=== PATIENT | female | born 1975 | race Caucasian/White ===

== ENCOUNTER 2023-05-30 15:17 | Observation (INO) | payer MEDICAID, SELFPAY ==
[2023-05-30] VITALS (9 sets, daily range): BP systolic 128–177; BP diastolic 46–90; PULSE 86–108; RESP 16–22; TEMP 36.4–37.2; O2SAT 95–100; BMI 27.9
--- NOTE | ~2023-05-30 | CT_ITS ---
EXAMINATION: CT chest abdomen pelvis w con DATE: 05/30/2023 16:55 INDICATION: epigastric abdominal and back pain with Hgb 6.3 . TECHNIQUE: Computed tomography (CT) of the chest, abdomen, and pelvis was performed with 100 mL Omnip aque-350 intravenous contrast. Automated exposure control and iterative reconstruction technique were employed. The dose-length product was 502.56 mGy-cm. COMPARISON: None FINDINGS: CHEST: Thoracic aorta: No significant dilation or calcification. Lung parenchyma and airways: Motion artifact. Lungs and airways are clear. Thoracic inlet, axillae and chest wall: No thyroid or soft tissue mass. No axillary lymphadenopathy. Mediastinum: No mass or lymphadenopathy. Severe wall edema and thickening involving the mid and lower esophagus. Heart and pericardium: Normal heart size. No pericardial effusion. Coronary artery calcifications: . Pleura: No effusion or mass. Thoracic bones: No acute osseous finding in the chest. ABDOMEN/PELVIS: Severe motion artifact in the abdomen and pelvis Liver: Normal. Biliary/Gallbladder: Gallbladder is absent. No bile duct dilation. Pancreas: No mass or duct dilation. Spleen: Normal. Adrenals:No mass. Kidneys: No suspicious mass, obstructing stone, or hydronephrosis. 2 mm left midpole nonobstructing c alcification. GI tract: No small or large bowel dilation. Appendix not confidently visualized Mesentery/Peritoneum: No ascites, mass, or free air. Retroperitoneum: No mass Pelvis: Mild bladder wall thickening in a well distended urinary bladder. The remaining pelvic organs are within normal limits Soft Tissues: Soft tissues and body wall unremarkable. Abdominopelvic bones: No acute osseous finding in the abdomen/pelvis. IMPRESSION: Examination of the inferior chest and the entire abdomen and pelvis significantly limited by severe m otion artifact. Severe esophagitis. Possible cystitis, correlate with urinalysis. Reviewed, dictated and finalized at location K. M TRAP WORKER IMPRESSION: Examination of the inferior chest and the entire abdomen and pelvis significant ly limited by severe motion artifact. Severe esophagitis. Possible cystitis, correlate with urinalysis.
--- NOTE | ~2023-05-30 | CT_ITS ---
EXAMINATION: CT chest abdomen pelvis w con DATE: 05/31/2023 18:21 INDICATION: Abdominal pain. Leukocytosis. TECHNIQUE: Computed tomography (CT) of the chest, abdomen, and pelvis was performed with 100 mL Omnip aque 350 intravenous contrast. Automated exposure control and iterative reconstruction technique were employed. The dose-length product was 302.04 mGy-cm. COMPARISON: CT chest, abdomen, and pelvis 05/30/2023, abdomen ultrasound 05/31/2023. FINDINGS: CHEST CT: There is mild dependent atelectasis bilaterally. There is smooth septal thickening in the lungs, cons istent with mild pulmonary edema. No pleural effusion. The heart size is normal. No pericardial effus ion. There is wall thickening of the distal esophagus. There is severe cervical spondylosis and moder ate thoracic spondylosis. ABDOMEN/PELVIS CT: The liver is normal. There are changes of cholecystectomy. The spleen, pancreas, adrenal glands, and kidneys are normal. There are no dilated loops of bowel. The appendix is normal. The bladder is diste nded. There is physiologic fluid in the pelvis. There are no pathologically enlarged lymph nodes. The re is severe lower lumbar spondylosis. IMPRESSION: 1. Wall thickening of the distal esophagus, likely esophagitis. 2. Mild pulmonary edema. Reviewed, dictated and finalized at location E. URE CAPITALIST
--- NOTE | ~2023-05-30 | US_ITS ---
EXAMINATION: US abdomen limited DATE: 05/31/2023 12:42 INDICATION: Abdominal pain TECHNIQUE: Multiple grayscale and Doppler ultrasound images of the abdomen were obtained. COMPARISON: CT from yesterday FINDINGS: Bowel gas obscures visualization of the pancreas. The visualized portions of the pancreas a re unremarkable. The liver is normal with normal echogenicity and echotexture. No surface nodularity. Normal hepatopetal flow in the main portal vein. Changes of cholecystectomy are noted. The normal co mmon bile duct measures 5 mm. IMPRESSION: 1. Normal sonographic study of the gallbladder. Reviewed, dictated and finalized at location L. CIPAL RESEARCH ECONOMIST
[2023-05-30] MEDS: SODIUM CHLORIDE 0.9% IV 1,000 ML 999 ML IV CONT (15:53)
[2023-05-30] MEDS: METOCLOPRAMIDE HCL INJ 10 MG/2 ML VIAL IV PUSH (15:55)
[2023-05-30] MEDS: KETOROLAC 30 MG/ML VIAL (*BKC) IV PUSH (15:57)
[2023-05-30] MEDS: diphenhydrAMINE HCl INJ 50 MG/ML VIAL IV PUSH ×2 (15:57→20:22)
[2023-05-30] MEDS: FAMOTIDINE 20 MG/2 ML VIAL 40 MG IV PUSH (16:01)
[2023-05-30 16:03] LABS: Basophils Absolute Auto 0.03 K/mm3 (0.00-0.10); Basophils Percent Auto 0.2 % (0.0-1.0); Eosinophils Absolute Auto 0.49 K/mm3 (0.02-0.50); Eosinophils Percent Auto 3.2 % (1.0-6.0); Hematocrit 24.6 % (35.0-49.0); Immature Granulocyte Percent A 0.7 % (0.0-0.0); Lymphocytes Absolute Auto 2.74 K/mm3 (1.10-4.50); Lymphocytes Percent Auto 18.1 % (18.0-42.0); Mean Corpuscular HGB Conc 25.6 g/dL (32.0-36.0); Mean Corpuscular Hemoglobin 20.7 pg (27.0-31.0); Mean Corpuscular Volume 80.7 fL (78.0-102.0); Mean Platelet Volume 10.6 fl (9.2-11.8); Monocytes Absolute Auto 0.96 K/mm3 (0.10-0.90); Monocytes Percent Auto 6.3 % (2.0-11.0); Neutrophils Absolute Auto 10.8 K/mm3 (1.7-7.2); Neutrophils Percent Auto 71.5 % (50.0-70.0); Platelet Count Result 476 K/mm3 (150-420); Red Blood Count 3.05 M/mm3 (4.20-5.40); Red Cell Distribution Width 17.5 % (11.6-14.4); White Blood Count 15.2 K/mm3 (4.8-10.8)
[2023-05-30 16:07] LABS: Hemoglobin 6.3 g/dL (12.0-15.0)
[2023-05-30 16:23] LABS: Lactic Acid Reflex 0.6 mmol/L (0.4-2.0)
--- NOTE | 2023-05-30 16:27 | PC.NURSE ---
RELEASE OF INFORMATION FAXED TO [facility] IN [facility] AT THIS TIME. PT REPORTS SHE WAS LAST IN THE ER AT [facility] SOMETIME SINCE MARCH OF 2023. PT CONTINUES TO THRASH ABOUT ON ÓSCARER, JF. PT REPORTED HER LAST BM WAS TODAY AND NORMAL FOR HER. CALL PLACED TO PT'S PHARMACY, [facility] IN [place], [place] TO OBTAIN MEDICATION LIST. PER PHARMACIST, PT HAS NOT PICKED UP HER MEDICATIONS SINCE SEPTEMBER OF 2022, THE LAST MEDICATION THAT WAS FILLED WAS ON 05/20/23 FOR FAMOTIDINE. PT IS AWAITING CT AT THIS TIME. WILL CONTINUE TO MONITOR.
[2023-05-30 16:31] LABS: Alanine Aminotransferase 18 U/L (14-59); Albumin Level 2.9 g/dL (3.4-5.0); Alkaline Phosphatase 92 U/L (46-116); Anion Gap 13 mmol/L (8-16); Aspartate Amino Transferase 34 U/L (15-37); Bilirubin,Total 0.2 mg/dL (0.00-1.00); Blood Urea Nitrogen 17 mg/dL (7-18); Calcium 9.5 mg/dL (8.5-10.1); Carbon Dioxide 22 mmol/L (21-32); Chloride 102 mmol/L (98-108); Estimated Glomerular Filt Rate > 60; Glucose 107 mg/dL (70-99); Lipase 51 U/L (16-77); Magnesium 1.7 mg/dL (1.8-2.4); Osmolality Calculated 285 mOsm/kg (285-295); Potassium 3.5 mmol/L (3.5-5.1); Sodium 137 mmol/L (136-145); Total Protein 6.9 g/dL (6.4-8.2)
--- NOTE | 2023-05-30 16:32 | ED.GENADULT ---
HPI - General Adult General Chief complaint: Abdominal Pain Stated complaint: ABD Time Seen by Provider: 05/30/23 15:26 History of Present Illness HPI narrative: 47yo woman presents with severe epigastric pain wrapping around the flanks bilaterally, new and sudden onset this morning with vomiting and the intense urge to belch. Pt writhing extensively in an exaggerated display of pain. No fever or chills. Last BM this morning and normal. No black or bloody stool. No black or bloody emesis. Pt does not give a straight answer if asked if she has had this before. She has been to multiple hospitals in [facility] in the past year, and most recently showed a microcytic anemia, hemoglobin 8, MCV 79, back in March, at which time she was diagnosed with esophagitis and prescribed PPI and carofate. Hemoglobin today is 6.3. Related Data Home Medications Medication Instructions Recorded Confirmed Unable to Obtain Home Medications 05/30/23 05/30/23 Allergies Allergy/AdvReac Type Severity Reaction Status Date / Time aspirin AdvReac Gastrointestinal Verified 05/30/23 15:21 Upset hydromorphone [From Dilaudid] AdvReac Migraine Verified 05/30/23 15:21 Review of Systems Review of Systems: All systems reviewed & are unremarkable except as noted in HPI and below Constitutional: Constitutional: Denies chills and Denies fever(s) ENT: Denies dysphagia Cardiovascular: Cardiovascular: Denies chest pain Respiratory: Respiratory: Denies chest congestion, Denies dyspnea and Denies wheezing Gastrointestinal: Gastrointestinal: Reports abdominal pain, Reports bloating, Denies constipation, Denies diarrhea, Reports nausea and Reports vomiting Genitourinary: Genitourinary: Denies abnormal vaginal bleeding and Denies flank pain Exam Const: General: alert Nutritional Appearance: well nourished Orientation/consciousness: patient oriented x3 Other: in obvious moderate discomfort, writhing about on stretcher, but redirectable HENMT: Head: normal to inspection, no contusions and no hematomas Other: there is a mole or scab on the philtrum that appears to have been picked/excoriated Eyes: Conjunctivae: conjunctivae normal EOM: EOMs intact bilaterally Neck: Other: supple, intact ROM Resp: Effort & Inspection: normal respiratory effort and not labored Auscultation: clear to auscultation bilaterally Cardio: Rate: regular rate Rhythm: regular rhythm Heart sounds: no murmurs GI: Inspection: non-distended GI Palp: Yes Soft to palpation, Yes Tenderness to palpation present (GI), Yes Guarding due to palpation present (GI) and No Rigid due to palpation Skin: General skin exam: normal color, no jaundice and no pallor Neuro: General: patient oriented x3 and moves all extremities Extrem: General: no clubbing, cyanosis or edema Course Vital Signs Vital signs: Vital Signs Temperature 36.6 C 05/30/23 15:17 Pulse Rate 108 H 05/30/23 15:17 Respiratory Rate 22 H 05/30/23 15:17 Blood Pressure 177/87 H 05/30/23 15:17 Pulse Oximetry 99 05/30/23 15:17 Oxygen Delivery Room Air 05/30/23 15:17 Temperature 36.7 C 05/30/23 17:49 Pulse Rate 88 05/30/23 17:49 Respiratory Rate 18 05/30/23 17:49 Blood Pressure 143/90 H 05/30/23 17:49 Pulse Oximetry 98 05/30/23 17:49 Oxygen Delivery Room Air 05/30/23 17:49 Medical Decision Making MDM Narrative Medical decision making narrative: epigastric pain, BUQ pain, DDx indigestion, gastritis, peptic ulcer, pancreatitis, esophagitis, consider possible chronic blood loss from ulcer or esophagitis, though iron deficiency seems more likely with the microcytosis. Pt has had cholecystectomy. Vital Signs Vital Signs: Vital Signs Temperature 36.6 C 05/30/23 15:17 Pulse Rate 108 H 05/30/23 15:17 Respiratory Rate 22 H 05/30/23 15:17 Blood Pressure 177/87 H 05/30/23 15:17 Pulse Oximetry 99 05/30/23 15:17 Oxygen Delivery
[2023-05-30 16:35] LABS: SPREG INTERNAL CONTROL Positive; Serum Qual hCG Negative
--- NOTE | 2023-05-30 16:58 | PC.NURSE ---
PT IS AT REST WHEN NO ONE IS IN ROOM, WHEN STAFF ARRIVE TO ROOM, PT BEGINS TO MOAN, BELCH, AND THRASH ABOUT. PT HAS RETURNED FROM CT, WARM BLANKETS AND MOUTH SWABS PROVIDED REQUESTED. PT IS AWAITING RESULTS AT THIS TIME. MEDICAL RECORDS WERE RECEIVED FROM [facility], ERP HAS REVIEWED. WILL CONTINUE TO MONITOR.
[2023-05-30 17:24] LABS: Ferritin 5 ng/mL (8-252); Iron 14 ug/dL (50-170); Percent Iron Saturation 4 % (12-57)
--- NOTE | 2023-05-30 17:50 | PC.NURSE ---
PT IS TO BE ADMITTED TO ROOM 210. PT IS AGREEABLE TO ADMISSION. PT IS CURRENTLY SLEEPING AND SNORING LOUDLY AT THIS TIME. WILL CONTINUE TO MONITOR.
[2023-05-30] MEDS: dexAMETHasone SOD PHOS INJ 10 MG/ML 1 ML VIAL IV PUSH (19:34)
[2023-05-30] MEDS: cefTRIAXone 1 GM/NS 50 ML BAG IVPB (19:44)
--- NOTE | 2023-05-30 20:40 | PC.NURSE ---
Patient brought to floor from ER for admission. Pateint admitttd to smoking meth yesterday. Patient is agitated and crying. Patient is feeling bugs crawling on her, staff unable to see any sign of bugs. IV to right wrist able to be flushed without difficulty. Patient yells out when staff touches her. Patient has 2 scabbed areas near nares. Pateint speaks rapidly and can be difficult to understand at times. Currently living with a cousin and does not have a current doctor or pharmacy. Nurse attempted to notify cousin that patient has been admitted here, message and phone number left. Introduction to room and rountines given. Call light within reach. Patient able to get up and walk without difficulty.
[2023-05-30] MEDS: QUEtiapine FUMARATE 100 MG TABLET PO (20:43)
[2023-05-30] MEDS: SODIUM CHLORIDE 0.9% IV 250 ML 30 ML IV CONT (20:44)
[2023-05-30 22:47] LABS: Add Urine Microscopic? NO; Appearance Urine Clear (Clear); Bilirubin Urine Negative (Negative); Blood Urine Negative (Negative); Color Urine Light Yellow (Yellow); Glucose Urine UA Negative (Negative); Ketones Urine Negative (Negative); Leukocyte Esterase Ur Negative LEU/UL (Negative); Nitrate Urine Negative (Negative); Protein Urine Negative (Negative); Urobilinogen Urine 0.2 mg/dL (0.2-1.0)
[2023-05-31] VITALS: BP 136/69; PULSE 92; RESP 18; TEMP 36.7; O2SAT 97
[2023-05-31] MEDS: DEXTROSE 5%/0.45% SOD CHL 1,000 ML 100 ML IV CONT
[2023-05-31 01:04] LABS: Hematocrit 26.1 % (35.0-49.0); Hemoglobin 7.7 g/dL (12.0-15.0)
[2023-05-31] MEDS: LORazepam INJ (*CRX) 2 MG/ML VIAL IV PUSH (05:25)
[2023-05-31 05:36] LABS: Basophils Absolute Auto 0.01 K/mm3 (0.00-0.10); Basophils Percent Auto 0.1 % (0.0-1.0); Hematocrit 27.4 % (35.0-49.0); Hemoglobin 7.9 g/dL (12.0-15.0); Immature Granulocyte Percent A 0.8 % (0.0-0.0); Lymphocytes Absolute Auto 1.54 K/mm3 (1.10-4.50); Mean Corpuscular HGB Conc 28.8 g/dL (32.0-36.0); Mean Corpuscular Hemoglobin 22.2 pg (27.0-31.0); Mean Platelet Volume 10.2 fl (9.2-11.8); Monocytes Absolute Auto 0.14 K/mm3 (0.10-0.90); Monocytes Percent Auto 1.2 % (2.0-11.0); Neutrophils Absolute Auto 10.1 K/mm3 (1.7-7.2); Neutrophils Percent Auto 84.9 % (50.0-70.0); Nucleated Red Blood Cells Absolute Auto 0.02 K/mm3 (0.00-0.00); Nucleated Red Blood Cells Perc 0.2 % (0-0.0); Platelet Count Result 410 K/mm3 (150-420); Red Blood Count 3.56 M/mm3 (4.20-5.40); Red Cell Distribution Width 16.7 % (11.6-14.4); White Blood Count 11.9 K/mm3 (4.8-10.8)
[2023-05-31 05:48] LABS: Anion Gap 9 mmol/L (8-16); Blood Urea Nitrogen 7 mg/dL (7-18); Calcium 8.6 mg/dL (8.5-10.1); Carbon Dioxide 24 mmol/L (21-32); Chloride 104 mmol/L (98-108); Estimated Glomerular Filt Rate > 60; Glucose 135 mg/dL (70-99); Osmolality Calculated 284 mOsm/kg (285-295); Potassium 3.6 mmol/L (3.5-5.1); Sodium 137 mmol/L (136-145)
[2023-05-31 08:00] VITALS: BP 143/75; PULSE 98; RESP 16; TEMP 36.6; O2SAT 100
--- NOTE | 2023-05-31 08:51 | PM.IMHP ---
H&P: HPI History of Present Illness Date/Time: 05/31/23 08:51 Chief Complaint: Abdominal pain Narrative: This is a 47-year-old female with a significant past medical history of drug abuse, GERD, seizures, bipolar disorder, asthma, COPD, cirrhosis who presented to the hospital with chief complaint of severe epigastric abdominal pain. Patient states that she has been having abdominal pain that has worsened over the last 3-4 days. She reports that it is colicky in nature and radiates from the epigastric area to her flank on the right side. She states that she has not had pain like this before since her gallbladder was removed. She initially denied any sick contacts but did state that her daughter and grandkids possibly had COVID recently. She is not sexually active at this point but has had 1 sexual partner in the past year. She reports that her home life is complicated and sometimes she has a place to live and other times she does not. She states that she last ate yesterday and usually gets 2 meals a day. Workup in the hospital include a CT of the abdomen pelvis with contrast which shown severe esophagitis, possible cystitis, rest of exam was limited due to severe motion artifact. Initial labs revealed a white blood cell count of 15.2, hemoglobin 6.3, hematocrit 24.6, magnesium 1.7, iron 14, TIBC 338, ferritin 5, transferrin is still pending, liver enzymes are normal, kidney function is normal, albumin is 2.9, lipase 51, test was negative, lactate 0.6. UA was performed and was negative for any bacteria. Patient was given antinausea medicine, 1 L normal saline, a dose of Rocephin, 10 mg of dexamethasone x1, and Toradol pain medication. She did receive 2 units of PRBC overnight. She did not list a history of anemia however she is a poor historian. On examination today patient is alert and oriented x3, lying in the bed. She appears very restless, rocking, moaning, and holding her abdomen. Patient denies any fever, chills, nausea, vomiting, diarrhea, chest pain, shortness a breath, headache, vision changes, lightheadedness, dizziness. Patient endorses severe epigastric pain radiating to the right flank, currently she rates her pain at a 5/10. Labs today revealed a white blood cell count of 11.9, hemoglobin 7.9, hematocrit 27.4, serum osmolarity 284, calcium 8.6. Review of Systems Review of Systems: All systems reviewed & are unremarkable except as noted in HPI and below Constitutional: Constitutional: Reports as per HPI and Reports no additional constitutional complaints Eyes: Eyes: Reports as per HPI and Reports no additional eye complaints ENT: Reports system reviewed and no additional complaints, except as documented and Reports as per HPI Cardiovascular: Cardiovascular: Reports as per HPI and Reports no additional cardiovascular complaints Respiratory: Respiratory: Reports as per HPI and Reports no additional respiratory complaints Gastrointestinal: Gastrointestinal: Reports as per HPI and Reports no additional gastrointestinal complaints Genitourinary: Genitourinary: Reports no additional female genitourinary complaints and Reports as per HPI Musculoskeletal: Musculoskeletal: Reports no additional musculoskeletal complaints and Reports as per HPI Integumentary/Breasts: Skin/Breast: Reports system reviewed and no additional complaints, except as docu and Reports as per HPI Neurologic: Reports system reviewed and no additional complaints, except as documented and Reports as per HPI Psychiatric: Psychiatric: Reports no additional psychiatric complaints and Reports as per HPI [facility] Past Medical History Medical History (Updated 05/31/23 @ 11:56 by Esme Parker, RELL) Asthma Bipolar disorder Cirrhosis COPD (chronic obstructive pulmonary disease) Drug abuse and dependence GERD (gastroesophageal reflux disease) Marijuana abuse Methamphetamine abuse Seizures Surgical History Surgical History (Reviewed 05/31/23 @ 1
[2023-05-31 11:25] LABS: Alanine Aminotransferase 22 U/L (14-59); Albumin Level 2.9 g/dL (3.4-5.0); Alkaline Phosphatase 94 U/L (46-116); Aspartate Amino Transferase 28 U/L (15-37); Bilirubin Direct 0.1 mg/dL (0-0.2); Bilirubin,Total 0.3 mg/dL (0.00-1.00); Total Protein 6.9 g/dL (6.4-8.2)
--- NOTE | 2023-05-31 11:37 | PC.NURSE ---
Contacte [facility] to come put in a midline.
[2023-05-31] MEDS: LORazepam (*CRX) 1 MG TABLET (11:39)
[2023-05-31 11:53] LABS: Thyroid Stimulating Hormone 1.12 uIU/mL (0.36-3.74)
[2023-05-31 12:05] LABS: Vitamin B12 295 pg/mL (193-986)
--- NOTE | 2023-05-31 12:13 | PC.NURSE ---
Pt has been hysterical during IV insertion and after. Complains of stomach pain when IV is inserted and pulls arm away. Pt states she is hungry and wants food. RN explained to pt that tests have been ordered that require she be NPO. Pt is writhing on the bed and then sleeping. INSTRUCTOR DANCING is aware.
[2023-05-31 12:14] LABS: CRP < 0.5 mg/dL (0.0-0.9)
[2023-05-31 12:15] LABS: Folic Acid > 20.0 ng/mL (8.6->20)
[2023-05-31 12:39] LABS: Erythrocyte Sedimentation Rate 55 mm/hr (0-15)
[2023-05-31] MEDS: busPIRone HCL 5 MG TABLET 15 MG PO (14:18)
[2023-05-31] MEDS: LORazepam (*CRX) 1 MG TABLET PO (15:46)
[2023-05-31 16:00] VITALS: BP 131/71; PULSE 85; RESP 16; TEMP 36.9; O2SAT 96
--- NOTE | 2023-05-31 17:46 | PC.NURSE ---
[employer] group leader here to insert midline in patient due to patient has poor access. #4 divehi, single lumen Midline inserted into right basilic vein. Patient tolerated well.
[2023-05-31 20:00] VITALS: PULSE 100; RESP 20; O2SAT 97
[2023-05-31] MEDS: traMADol HCL (*CRX) 25 MG TABLET PO (20:25)
[2023-05-31] MEDS: METOCLOPRAMIDE HCL INJ 10 MG/2 ML VIAL IV PUSH (20:26)
[2023-05-31] MEDS: PANTOPRAZOLE 40 MG TABLET PO (20:41)
[2023-05-31] MEDS: QUEtiapine FUMARATE 100 MG TABLET PO (20:41)
--- NOTE | 2023-05-31 21:00 | PC.NURSE ---
Pt asking form food and water and if CT abd is back. Reports reviewed and scans negative. Pt cleared to have food and drink.
--- NOTE | 2023-05-31 21:15 | PC.NURSE ---
Pt given light soft foods to eat and ate 100% of pudding, applesauce and fruit cup. Pt sipping on pepsi, c/o some upper and lower abd cramping and pain c eating. Pt encouraged to not eat so fast and let food digest. Pt given pain meds for her cramping and abd pain as per order
[2023-05-31] MEDS: SALINE LOCK FLUSH 10 ML IV PUSH (21:55)
[2023-05-31 22:48] LABS: Influenza A QL RT-PCR Negative (Negative); Influenza B QL RT-PCR Negative (Negative); RSV RNA, RT-PCR Negative (Negative); SARS-CoV-2 RNA PCR Negative (Negative)
--- NOTE | 2023-05-31 23:00 | PC.NURSE ---
Pt sleeping and is arousable to stimuli then falls back asleep again. Pts VSS, call gilbert at pt side.
[2023-05-31 23:46] VITALS: BP 147/65; PULSE 100; RESP 20; TEMP 36.5; O2SAT 97
--- NOTE | 2023-06-01 05:16 | PC.NURSE ---
Pt awake and restless in bed p blood draw from midline port. Pt wanting more food and drink. Pt given ice chips for pepsi and fruit cups c applesauce. Explained to pt b-fast is at 0800 and will bring increased diet for b-fast. Pt verbalized understanding.
[2023-06-01 05:18] LABS: Basophils Absolute Auto 0.02 K/mm3 (0.00-0.10); Basophils Percent Auto 0.3 % (0.0-1.0); Eosinophils Absolute Auto 0.12 K/mm3 (0.02-0.50); Eosinophils Percent Auto 1.5 % (1.0-6.0); Hematocrit 25.7 % (35.0-49.0); Hemoglobin 7.3 g/dL (12.0-15.0); Immature Granulocyte Absolute 0.05 K/mm3 (0.00-0.00); Immature Granulocyte Percent A 0.6 % (0.0-0.0); Lymphocytes Absolute Auto 2.69 K/mm3 (1.10-4.50); Lymphocytes Percent Auto 34.5 % (18.0-42.0); Mean Corpuscular HGB Conc 28.4 g/dL (32.0-36.0); Mean Corpuscular Hemoglobin 21.8 pg (27.0-31.0); Mean Corpuscular Volume 76.7 fL (78.0-102.0); Monocytes Absolute Auto 0.49 K/mm3 (0.10-0.90); Monocytes Percent Auto 6.3 % (2.0-11.0); Neutrophils Absolute Auto 4.4 K/mm3 (1.7-7.2); Neutrophils Percent Auto 56.8 % (50.0-70.0); Platelet Count Result 409 K/mm3 (150-420); Red Blood Count 3.35 M/mm3 (4.20-5.40); Red Cell Distribution Width 17.2 % (11.6-14.4); White Blood Count 7.8 K/mm3 (4.8-10.8)
[2023-06-01 05:38] LABS: Alanine Aminotransferase 21 U/L (14-59); Albumin Level 2.5 g/dL (3.4-5.0); Alkaline Phosphatase 117 U/L (46-116); Anion Gap 8 mmol/L (8-16); Aspartate Amino Transferase 22 U/L (15-37); Bilirubin,Total 0.2 mg/dL (0.00-1.00); Blood Urea Nitrogen 8 mg/dL (7-18); Calcium 8.1 mg/dL (8.5-10.1); Carbon Dioxide 28 mmol/L (21-32); Chloride 105 mmol/L (98-108); Estimated Glomerular Filt Rate > 60; Glucose 88 mg/dL (70-99); Osmolality Calculated 289 mOsm/kg (285-295); Potassium 3.6 mmol/L (3.5-5.1); Sodium 141 mmol/L (136-145); Total Protein 6.2 g/dL (6.4-8.2)
[2023-06-01] MEDS: SALINE LOCK FLUSH 10 ML IV PUSH (06:32)
[2023-06-01 08:00] VITALS: BP 150/70; PULSE 98; RESP 14; TEMP 36.8; O2SAT 98
[2023-06-01 08:29] LABS: Chlamydia trachomatis NOT DETECTED (NOT DETECTE); Neisseria gonorrhoeae PCR NOT DETECTED (NOT DETECTE)
[2023-06-01] MEDS: busPIRone HCL 5 MG TABLET 15 MG PO (09:11)
[2023-06-01] MEDS: FERROUS SULFATE 325 MG TABLET DR PO (09:11)
[2023-06-01] MEDS: PANTOPRAZOLE 40 MG TABLET PO (09:11)
[2023-06-01] MEDS: SUCRALFATE 1 GM TABLET PO (11:59)
--- NOTE | 2023-06-01 12:45 | PM.DS ---
DS: Admitting Diagnosis Discharge Date 06/01/2023 Admitting Diagnosis acute abdominal pain acute gastritis without hemorrhage iron deficiency anemia GERD cirrhosis bipolar disorder drug abuse and dependence DS: Discharge Diagnosis Discharge Diagnosis (1) Abdominal pain, acute, epigastric: Code(s): R10.13 - Epigastric pain Status: Acute (2) Acute gastritis without hemorrhage: Qualifiers: Gastritis type: other gastritis Qualified Code(s): K29.00 - Acute gastritis without bleeding Code(s): K29.00 - Acute gastritis without bleeding Status: Acute (3) Microcytic anemia: Code(s): D50.9 - Iron deficiency anemia, unspecified Status: Acute (4) GERD (gastroesophageal reflux disease): Code(s): K21.9 - Gastro-esophageal reflux disease without esophagitis Status: Chronic (5) Cirrhosis: Code(s): K74.60 - Unspecified cirrhosis of liver Status: Chronic (6) Bipolar disorder: Code(s): F31.9 - Bipolar disorder, unspecified Status: Chronic (7) Drug abuse and dependence: Code(s): F19.20 - Other psychoactive substance dependence, uncomplicated Status: Chronic DS: Summary Hospital Course Reason for hospitalization: acute abdominal pain acute gastritis without hemorrhage iron deficiency anemia GERD cirrhosis bipolar disorder drug abuse and dependence Hospital Course: 05/31/23: This is a 47-year-old female with a significant? past medical history of drug abuse, GERD, seizures, bipolar disorder, asthma, COPD, cirrhosis who presented to the hospital with chief complaint of severe epigastric abdominal pain.? Patient states that she has been having abdominal pain that has worsened over the last 3-4 days.? She reports that it is colicky in nature and? radiates from the epigastric area to her flank on the right side.? She states that she has not had pain like this before since her gallbladder was removed. ? She initially denied any sick contacts but did state that her daughter and grandkids possibly had COVID recently.? She is not sexually active at this point but has had 1 sexual partner in the past year.? She reports that her home life is complicated and sometimes she has a place to live and other times she does not.? She states that she last ate yesterday and usually gets 2 meals a day. Workup in the hospital include a CT of the abdomen pelvis with contrast which shown severe esophagitis, possible cystitis, rest of exam was limited due to severe motion artifact.? Initial labs revealed a white blood cell count of 15.2, hemoglobin 6.3, hematocrit 24.6, magnesium 1.7, iron 14, TIBC 338, ferritin 5, transferrin is still pending, liver enzymes are normal, kidney function is normal, albumin is 2.9, lipase 51, test was negative, lactate 0.6.? UA was performed and was negative for any bacteria.? Patient was given antinausea medicine, 1 L normal saline, a dose of Rocephin, 10 mg of dexamethasone x1, and? Toradol pain medication.? She did receive 2 units of PRBC overnight. ? She did not list a history of anemia however she is a poor historian. On examination today patient is alert and oriented x3, lying in the bed. She appears very restless, rocking,? moaning, and holding her abdomen. Patient denies any fever, chills, nausea, vomiting, diarrhea, chest pain, shortness a breath, headache, vision changes, lightheadedness, dizziness. Patient endorses severe epigastric pain radiating to the right flank, currently she rates her pain at a 5/10. Labs today revealed a white blood cell count of 11.9, hemoglobin 7.9, hematocrit 27.4, serum osmolarity 284, calcium 8.6. 06/01/23: on examination today patient is alert and oriented x3, lying in the bed. She states she is feeling much better today. She did say that she was diagnosed with a ulcer a while back but has not been followed by any physicians. We did start her on Carafate and Protonix to office messenger helper her abdominal
[2023-06-01] MEDS: CALCIUM CARBONATE (TUMS) 500 MG (200 MG ELEMENTAL) PO (13:09)
--- NOTE | 2023-06-01 16:50 | PC.NURSE ---
Discharge instructions given to patient. Patient acknowledges instructions and signed paper. Patient helped into wheelchair and escorted to personal vehicle. Patients helped into vehicle, accompanied by cousin who was the tram driver. Patients personal belongings with patient at the time of discharge.
--- NOTE | 2023-06-02 13:37 | PC.NURSE ---
Family understood dc instructions, patient having difficulty finding a PCP and a GI consult
[2023-06-02 20:35] LABS: Transferrin 285 mg/dL (188-341)
[2023-06-04 05:56] LABS: Vitamin D 1,25 (OH)2 Total 33 pg/mL (18-72); Vitamin D2 1,25 (OH)2 <8 pg/mL; Vitamin D3 1,25 (OH)2 33 pg/mL
[2023-06-04 19:22] LABS: Hepatitis A Antibody IgM Nonreactive; Hepatitis B Core Antibody Nonreactive (Nonreactive); Hepatitis B Surface Antigen Nonreactive (Nonreactive); Hepatitis C Virus Antibody Nonreactive
[2023-06-05 13:34] LABS: Anti Nuclear Antibody Titer 1:40 (Negative)
== END 2023-06-01 16:50 | disposition home or self-care (01) ==
LOC: CHSED 16:07 → CHS2ND 17:46
PROVIDERS: Nurse Practitioner Acute Care; Admitting Provider Internal Medicine; Emergency Provider Emergency Medicine; Visit Provider Internal Medicine
DX: K29.00 Acute gastritis without bleeding (principal); K21.00 Gastro-esophageal reflux disease with esophagitis, without bleeding; K74.60 Unspecified cirrhosis of liver; D50.9 Iron deficiency anemia, unspecified; J44.9 Chronic obstructive pulmonary disease, unspecified; Z20.822 Contact with and (suspected) exposure to COVID-19; F31.9 Bipolar disorder, unspecified; F15.10 Other stimulant abuse, uncomplicated; F12.10 Cannabis abuse, uncomplicated; R56.9 Unspecified convulsions; Z59.00 Homelessness unspecified
CPT/HCPCS: 36415; 36430; 36569; 71260; 74177; 76705; 80048; 80053; 80074; 80076; 81003; 82607; 82652; 82728; 82746; 83540; 83550; 83605; 83690; 83735; 84443; 84466; 84703; 85014; 85018; 85025; 85652; 86038; 86039; 86140; 86592; 86593; 86780; 86850; 86900; 86901; 86920; 87491; 87591; 87637; 96361; 96365; 96374; 96375; 96376; 99285; A9270; G0378; G0379; J0696; J1100; J1200; J1885; J2060; J2765; J7030; J7050; P9016; Q9967